=== PATIENT | female | born 1990 | race Two or more races ===

== ENCOUNTER 2019-07-04 07:41 | Emergency (ER) | payer BC ==
[~2019-07-04] VITALS: Ht 152.4 cm; Wt 68.0 kg
[2019-07-04 07:49] VITALS: BP_SYST 90
[2019-07-04 08:21] LABS: BASOPHILS % (AUTO) 0.4 % (0.0-2.0); EOSINOPHILS # (AUTO) 0.1 K/uL (0.0-0.4); EOSINOPHILS % (AUTO) 1.2 % (0.0-4.0); HEMATOCRIT 41.9 % (36-48); HEMOGLOBIN 14.3 g/dL (12.0-16.0); LYMPHOCYTES # (AUTO) 2.5 K/uL (1.0-5.5); LYMPHOCYTES % (AUTO) 39.4 % (20.5-51.5); MEAN CORPUSCULAR HEMOGLOBIN 30 pg (27-31); MEAN CORPUSCULAR HGB CONC 34 % (32-36); MEAN CORPUSCULAR VOLUME 89 fL (79.0-98.0); MONOCYTES # (AUTO) 0.3 K/uL (0.0-1.0); MONOCYTES % (AUTO) 4.2 % (1.7-9.3); NEUTROPHILS # (AUTO) 3.5 K/uL (1.8-7.7); NEUTROPHILS % (AUTO) 54.8 % (40.0-70.0); PLATELET COUNT (AUTO) 379 K/uL (130-430); RED BLOOD CELL COUNT(AUTO) 4.73 MIL/uL (4.2-6.2); RED CELL DISTRIBUTION WIDTH 14.2 % (9.0-15.0); WHITE BLOOD COUNT (AUTO) 6.3 K/uL (4.8-10.8)
[2019-07-04] MEDS: ONDANSETRON 4 MG ODT TAB PO ONE (08:23)
[2019-07-04] MEDS: KETOROLAC TROMETHAMINE 60 MG/2 ML VIAL IM ONE (08:24)
[2019-07-04 08:39] LABS: CALCIUM 9.1 mg/dL (8.4-11.0); CREATININE 0.8 mg/dL (0.55-1.30); POTASSIUM 3.3 mmol/L (3.5-5.1)
[2019-07-04 08:45] LABS: ALBUMIN 3.9 g/dL (3.4-4.8); TOTAL BILIRUBIN 0.7 mg/dL (0.0-1.0)
[2019-07-04 09:12] VITALS: BP_SYST 90
== END 2019-07-04 09:12 | disposition home or self-care (01) ==
LOC: SED 07:41
DX: R10.13 Epigastric pain (principal)
CPT/HCPCS: 36415; 76700; 80053; 83690; 85025; 96372; 99284; J1885; Q0162